=== PATIENT | male | born 1945 | race Caucasian/White ===

== ENCOUNTER 2016-03-20 17:04 | Inpatient (IN) | payer MEDICARE, OTHER ==
[2016-03-20] VITALS (7 sets, daily range): BP systolic 150–172; BP diastolic 79–93; PULSE 78–104; RESP 15–23; TEMP 98.1; O2SAT 93–97
[~2016-03-20] VITALS: Ht 180.3 cm; Wt 123.8 kg
[~2016-03-20 17:04] MED LIST: 1-ME1LIQ PO; ALBU8I INH; ASPI81TA82 PO; ATOR80TA PO; HYDR-3535 PO; IBUP800T23 PO; LORA1TAB PO; METO25 PO; NOVO7030P2 SQ; OMEG100037 PO; OXYC10TA8 PO; PLAV75TA PO; PROT40TA PO; TRAM50TA PO; VENL150T14 PO
[2016-03-20] MEDS ORDERED: SODIUM CHLORIDE 0.9% FLUSH 5 ML FLUSH IVF PRN (17:30)
[2016-03-20] MEDS ORDERED: VENL225T PO (17:43)
[2016-03-20] MEDS ORDERED: LANTUS2P SQ (17:43)
[2016-03-20] MEDS ORDERED: NOVOLOGP2 SQ ×3 (17:43)
[2016-03-20] MEDS ORDERED: IBUP-232 PO (17:47)
[2016-03-20] MEDS ORDERED: GABA800T PO (17:47)
[2016-03-20] MEDS ORDERED: LISI40TA PO (17:47)
[2016-03-20] MEDS ORDERED: OXYC-392 PO (17:47)
[2016-03-20] MEDS ORDERED: LORA1TAB12 PO (17:47)
[2016-03-20] MEDS ORDERED: AMLO10TA2 PO (17:47)
[2016-03-20] MEDS ORDERED: ATOR40TA16 PO (17:48)
[2016-03-20] MEDS ORDERED: FISH100020 PO (17:48)
[2016-03-20 18:01] LABS: AUTOMATED NEUTROPHIL # 5.5 TH/MM3 (1.8-7.7); BASOPHIL # 0.1 TH/MM3 (0-0.2); BASOPHIL % 0.6 % (0.0-2.0); EOSINOPHIL # 0.3 TH/MM3 (0-0.4); EOSINOPHIL % 2.8 % (0.0-4.0); HEMATOCRIT 48.5 % (39.0-51.0); HEMO FLAGS DIFF FINAL; LYMPH % 25.1 % (9.0-44.0); LYMPHOCYTE # 2.2 TH/MM3 (1.0-4.8); MEAN CELL VOLUME 84.7 FL (80.0-100.0); MEAN CORPUSCULAR HGB CONC 34.2 % (32.0-36.0); MONO % 9.2 % (0.0-8.0); NEUT % 62.3 % (16.0-70.0); PLATELET COUNT 189 TH/MM3 (150-450); RED BLOOD COUNT 5.73 MIL/MM3 (4.50-5.90); RED CELL DISTRIBUTION WIDTH 13.3 % (11.6-17.2); WHITE BLOOD COUNT 8.8 TH/MM3 (4.0-11.0)
--- NOTE | 2016-03-20 18:04 | RADRPT ---
EXAM DATE/TIME: 03/20/2016 17:40 [place] COMPARISON: No previous studies available for comparison. INDICATIONS : Short of Breath. MEDICAL HISTORY : Chronic renal failure. SURGICAL HISTORY : None. ENCOUNTER: Initial ACUITY: 1 day PAIN SCORE: 0/10 LOCATION: Bilateral chest FINDINGS: A single view of the chest demonstrates the lungs to be symmetrically aerated without evidence of mas s, infiltrate or effusion. The cardiomediastinal contours are unremarkable. Osseous structures are intact. CONCLUSION: No evidence of pulmonary disease. Edwin Sandhu MD on March 20, 2016 at 18:02 Board Certified Radiologist. This report was verified electronically.
[2016-03-20 18:06] LABS: INTERNATIONAL NORMALIZED RATIO 1.1 RATIO
[2016-03-20 18:19] LABS: ALKALINE PHOSPHATASE 109 U/L (45-117); BLOOD UREA NITROGEN 18 MG/DL (7-18); TOTAL BILIRUBIN ADULT 0.6 MG/DL (0.2-1.0)
[2016-03-20 18:32] LABS: ALT (GPT) 44 U/L (12-78); ANION GAP 5 MEQ/L (5-15); AST (GOT) 29 U/L (15-37); BICARBONATE 27.7 MEQ/L (21.0-32.0); CHLORIDE 102 MEQ/L (98-107); GLOMERULAR FILTRATION RATE 59 ML/MIN (>89); MAGNESIUM 1.9 MG/DL (1.5-2.5); SODIUM (NA) 135 MEQ/L (136-145)
[2016-03-20 18:33] LABS: POTASSIUM 4.1 MEQ/L (3.5-5.1)
--- NOTE | 2016-03-20 18:41 | PD ---
HPI Chief Complaint: Cardiac Complaint Time Seen by Provider: 17:12 Travel History International Travel<30 days: No Contact w/Intl Traveler<30days: No Traveled to known affect area: No History of Present Illness HPI This is a 71-year-old male who has a history of prior [place] who presents to the emergency department with wide-complex tachycardia. Patient was getting a tooth removed at the [place] and he was administered some sort of aging containing epinephrine when on the monitor they noticed that he was in a wide-complex tachycardia. EMS was called. EMS said the patient's rhythm resolved for some periods of time but then he went back so they started amiodarone and administered 150 mg. The patient has no complaints. He denies any chest pain or shortness of breath. His son reports that he's been weaker recently and has had less energy than normal. PFSH Past Medical History Arthritis: Yes Blood Disorders: No Cancer: No Cardiovascular Problems: Yes (STENT) Diabetes: Yes (INSULIN DEPENDENT) Patient Takes Glucophage: No Diminished Hearing: No Endocrine: No Genitourinary: No Hepatitis: Yes ("C") Hiatal Hernia: No Hypertension: Yes Immune Disorder: No Kidney Stones: Yes Neurologic: No Psychiatric: No Reproductive: No Respiratory: Yes (COPD) Thyroid Disease: No Tetanus Vaccination: Unknown Influenza Vaccination: Yes ?: Not Past Surgical History Abdominal Surgery: Yes (UMBILICAL HERNIA) AICD: No Body Medical Devices: HARDWARE IN BACK, CARDIAC STENT Cardiac Surgery: No Ear Surgery: Yes (PE TUBES) Endocrine Surgery: No Eye Surgery: No Genitourinary Surgery: Yes (ESWL) Gynecologic Surgery: No Joint Replacement: No Oral Surgery: Yes Pacemaker: No Thoracic Surgery: No Other Surgery: Yes Social History Alcohol Use: No Tobacco Use: Yes (1PK/DAY) Substance Use: No Allergies-Medications (Allergen,Severity, Reaction): Coded Allergies: No Known Allergies (Verified , 12/03/15) Reported Meds & Prescriptions Reported Meds & Active Scripts Active Reported Fish Oil 1000 mg ([place]-3 Fatty Acids) 1 Cap Cap 1,000 Mg PO BID Atorvastatin (Atorvastatin Calcium) 40 Mg Tab 40 Mg PO HS Gabapentin 800 Mg Tab 800 Mg PO TID Lisinopril 40 Mg Tab 40 Mg PO DAILY Amlodipine (Amlodipine Besylate) 10 Mg Tab 10 Mg PO DAILY Ibuprofen 600 Mg Tab 600 Mg PO TID PRN Lorazepam 1 Mg Tab 1 Mg PO HS Oxycodone (Oxycodone HCl) 5 Mg Tab 5 Mg PO Q8HR PRN Venlafaxine ER 24 HR (Venlafaxine HCl) 225 Mg Tab 225 Mg PO DAILY Novolog Inj (Insulin Aspart) 1,000 Unit/10 Ml Vial 19 Units SQ AC DINNER Novolog Inj (Insulin Aspart) 1,000 Unit/10 Ml Vial 5 Units SQ AC LUNCH Novolog Inj (Insulin Aspart) 1,000 Unit/10 Ml Vial 15 Units SQ AC BREAKFAST Lantus Inj (Insulin Glargine) 1,000 Unit/10 Ml Vial 52 Units SQ HS Review of Systems Except as stated in HPI: all other systems reviewed are Neg Physical Exam Narrative GENERAL:Well appearing, no acute distress SKIN: Warm and dry. HEAD: Atraumatic. Normocephalic. EYES: Pupils equal and round. No injection or drainage. ENT: Moist mucous membranes NECK: Trachea midline. CARDIOVASCULAR: Tachycardic. No murmur appreciated. RESPIRATORY: Clear to auscultation. Breath sounds equal bilaterally. GASTROINTESTINAL: Abdomen soft, non-tender, nondistended. MUSCULOSKELETAL: No obvious deformities. NEUROLOGICAL: Awake and alert. No obvious cranial nerve deficits. Moving all extremities. PSYCHIATRIC: Appropriate mood and affect; insight and judgment normal. Data Data Last Documented VS Vital Signs Date Time Temp Pulse Resp B/P Pulse Ox O2 Delivery O2 Flow Rate FiO2 03/20/16 17:29 104 18 166/89 97 Nasal Cannula 2 03/20/16 17:18 98.1 Orders Electrocardiogram (03/20/16 17:26) Complete Blood Count With Diff (03/20/16 17:26) Comprehensive Metabolic Panel (03/20/16 17:26) Magnesium (Mg) (03/20/16 17:26) Prothrombin Time / Inr (Pt) (03/20/16 17:26) Act Partial Throm Time (Ptt) (03/20/16 17:26) Troponin I (03/20/16 17:26) Chest, Single Ap (03/20/16 17:26) Ecg Monitoring (03/20/16 17:26) Bilateral Bp Monitoring (03/20/16 17:26) Iv Access Insert/Monitor (03/20/16 17:26) Oximetry (03/20/16 17:26) Oxygen Administration (03/20/16 17:26) Sodium Chloride 0.9% Flush (Ns Flush) (03/20/16 17:30) Amiodarone Inj (Cordarone Inj) (03/20/16 18:30) Labs Laboratory Tests Test 03/20/16 17:30 White Blood Count 8.8 TH/MM3 Red Blood Count 5.73 MIL/MM3 Hemoglobin 16.6 GM/DL Hematocrit 48.5 % Mean Corpuscular Volume 84.7 FL Mean Corpuscular Hemoglobin 29.0 PG Mean Corpuscular Hemoglobin 34.2 % Concent Red Cell Distribution Width 13.3 % Platelet Count 189 TH/MM3 Mean Platelet Volume 10.0 FL Neutrophils (%) (Auto) 62.3 % Lymphocytes (%) (Auto) 25.1 % Monocytes (%) (Auto) 9.2 % Eosinophils (%) (Auto) 2.8 % Basophils (%) (Auto) 0.6 % Neutrophils # (Auto) 5.5 TH/MM3 Lymphocytes # (Auto) 2.2 TH/MM3 Monocytes # (Auto) 0.8 TH/MM3 Eosinophils # (Auto) 0.3 TH/MM3 Basophils # (Auto) 0.1 TH/MM3 CBC Comment DIFF FINAL Differential Comment Prothrombin Time 12.0 SEC Prothromb Time International 1.1 RATIO Ratio Activated Partial 29.0 SEC Thromboplast Time Sodium Level 135 MEQ/L Potassium Level 4.1 MEQ/L Chloride Level 102 MEQ/L Carbon Dioxide Level 27.7 MEQ/L Anion Gap 5 MEQ/L Blood Urea Nitrogen 18 MG/DL Creatinine 1.22 MG/DL Estimat Glomerular Filtration 59 ML/MIN Rate Random Glucose 125 MG/DL Calcium Level 9.0 MG/DL Magnesium Level 1.9 MG/DL Total Bilirubin 0.6 MG/DL Aspartate Amino Transf 29 U/L (AST/SGOT) Alanine Aminotransferase 44 U/L (ALT/SGPT) Alkaline Phosphatase 109 U/L Troponin I LESS THAN 0.02 NG/ML Total Protein 7.7 GM/DL Albumin 3.9 GM/DL [facility] Medical Decision Making Medical Screen Exam Complete: Yes Emergency Medical Condition: Yes Interpretation(s) Afebrile, tachycardic, hypertensive No leukocytosis Electrolytes are reassuring Coags are normal Differential Diagnosis Ventricular tachycardia, SVT with aberrancy, acute coronary syndrome Narrative Course This is a 71-year-old male who presents to the emergency department with a wide- complex tachycardia. He is asymptomatic. He was placed on amiodarone by EMS. His vital signs are stable and he has no chest pain. Labs are all reassuring. Patient will be admitted for cardiology consultation. Critical Care Narrative Aggregate critical care time was 35 minutes. Time to perform other separately billable procedures was not included in the critical care time. My time did not include minutes spent treating any other patients simultaneously or on activities that did not directly contribute to the patient's treatment. The services I provided to this patient were to treat and/or prevent clinically significant deterioration that could result in: Disability, I provided critical care services requiring my management, as noted below: Chart data review, documentation time, medication orders and management, vital sign assessments/reviewing monitor data, ordering and reviewing lab tests, ordering and interpreting/reviewing x-rays and diagnostic studies, care of the patient and discussion of the patient with the admitting physicians. Diagnosis Primary Impression: Wide-complex tachycardia Admitting Information Admitting Physician Requests: Admit Sumaya Nur MD Mar 20, 2016 18:41
[2016-03-20] MEDS: AMIODARONE INJ 450 MG in DEXTROSE 5% IN WATE(EXCEL) INJ 250 ML IV SCH ×2 (19:27)
[2016-03-20] MEDS: MORPHINE SULFATE 4 MG/ML INJ IV PUSH PRN (21:33)
--- NOTE | 2016-03-20 21:46 | HHI.HP ---
HPI Service [facility] Hospitalists Primary Care Physician Neeta Barry M.D. Admission Diagnosis wide complex tachycardia Chief Complaint: sent from [place] for fast heart rate Travel History International Travel<30 Days: No Contact w/Intl Traveler <30 Da: No Traveled to Known Affected Are: No History of Present Illness This is a 71-year-old male who has a history of prior [place] and stent placement who presents to the emergency department via [facility] from local [facility] with wide- complex tachycardia. Patient was getting a tooth removed at the [facility] and he was administered some sort of education containing possibly epinephrine or Novocain when apparently on the monitor they noticed that he was in a wide-complex tachycardia. His blood pressure and heart rate were elevated. Manual recheck at the [facility] revealed heart rate in the 130s. Heart rate improved with Valsalva maneuver, but EMS was called. EMS said the patient's rhythm resolved for some periods of time but then he went back into wide-complex tachyarrhythmia so they started amiodarone and administered 150 mg. He denies any chest pain or shortness of breath. His son reports that he's been weaker recently and has had less energy than normal. She reports the only reason he is here is that the [facility] sent him by ambulance. He denies any complaints to me except for some slight oozing of blood from where he had his tooth removed and some slight pain around that area. Review of Systems Constitutional: COMPLAINS OF: Fatigue Ears, nose, mouth, throat: COMPLAINS OF: Toothache Respiratory: DENIES: Apneas, Cough, Snoring, Wheezing, Hemoptysis, Sputum production, Shortness of breath Cardiovascular: DENIES: Chest pain, Palpitations, Syncope, Dyspnea on Exertion , PND, Lower Extremity Edema, Orthopnea, Claudication Gastrointestinal: DENIES: Abdominal pain, Black stools, Bloody stools, BRB per rectum, Constipation, Diarrhea, GERD, Nausea, Reflux, Vomiting, Difficulty Swallowing, Anorexia, See HPI Musculoskeletal: COMPLAINS OF: Joint pain, Stiffness Integumentary: DENIES: Abnormal pigmentation, Nail changes, Pruritus, Rash Hematologic/lymphatic: DENIES: Bruising, Lymphadenopathy Neurologic: DENIES: Abnormal gait, Headache, Localized weakness, Paresthesias, Seizures, Speech Problems, Tremor, Poor Balance Past Family Social History Past Medical History Aortic ectasia and atherosclerosis of the aorta BPH Chronic hepatitis C COPD Chronic kidney disease stage II Diabetes with angiopathy and peripheral neuropathy Diabetic nephropathy Lumbar degenerative disc disease Hyperlipidemia Long-term insulin use Major depressive disorder recurrent Paroxysmal ventricular tachyarrhythmia Past Surgical History Lumbar arthrodesis in 2007 Lumbar laminectomy at L4-L5 Lithotripsy Paravertebral nerve block Heart catheterization with bare metal stent placement approximately one year ago per patient Reported Medications Fish Oil 1000 mg ([place]-3 Fatty Acids) 1 Cap Cap 1,000 Mg PO BID Atorvastatin (Atorvastatin Calcium) 40 Mg Tab 40 Mg PO HS Gabapentin 800 Mg Tab 800 Mg PO TID Lisinopril 40 Mg Tab 40 Mg PO DAILY Amlodipine (Amlodipine Besylate) 10 Mg Tab 10 Mg PO DAILY Ibuprofen 600 Mg Tab 600 Mg PO TID PRN Lorazepam 1 Mg Tab 1 Mg PO HS Oxycodone (Oxycodone HCl) 5 Mg Tab 5 Mg PO Q8HR PRN Venlafaxine ER 24 HR (Venlafaxine HCl) 225 Mg Tab 225 Mg PO DAILY Novolog Inj (Insulin Aspart) 1,000 Unit/10 Ml Vial 19 Units SQ AC DINNER Novolog Inj (Insulin Aspart) 1,000 Unit/10 Ml Vial 5 Units SQ AC LUNCH Novolog Inj (Insulin Aspart) 1,000 Unit/10 Ml Vial 15 Units SQ AC BREAKFAST Lantus Inj (Insulin Glargine) 1,000 Unit/10 Ml Vial 52 Units SQ Allergies: Coded Allergies: No Known Allergies (Verified , 12/03/15) Family History n/c Social History No tobacco in 10 years prior to that smoked about 1-1/2 packs per day for over 40 years No alcohol or illicit drugs recently 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 SKIN: No rashes, ecchymoses or lesions. Cool and dry. Multiple tattoos on arms and torso, lower extremities. HEAD: Atraumatic. Normocephalic. No temporal or scalp tenderness. EYES: Pupils equal round and reactive. Extraocular motions intact. No scleral icterus. No injection or drainage. ENT: Nose without bleeding, purulent drainage or septal hematoma. Post dental extraction venous oozing left anterior mandible, Uvula midline. Airway patent. NECK: Trachea midline. No JVD or lymphadenopathy. Supple, nontender, no meningeal signs. CARDIOVASCULAR: Regular rate and rhythm with occasional extrasystole. No significant murmur. Rate in the 80s on my exam. RESPIRATORY: Clear to auscultation. Breath sounds equal bilaterally. No wheezes , rales, or rhonchi. GASTROINTESTINAL: Abdomen soft, non-tender, nondistended. No hepato-splenomegaly , or palpable masses. No guarding. MUSCULOSKELETAL: Extremities without clubbing, cyanosis, or edema. No joint tenderness, effusion, or edema noted. No calf tenderness. Negative Homans sign bilaterally. NEUROLOGICAL: Awake and alert. Cranial nerves II through XII intact. Motor and sensory grossly within normal limits. Five out of 5 muscle strength in all muscle groups. Normal speech. Laboratory Laboratory Tests Test 03/20/16 17:30 White Blood Count 8.8 Red Blood Count 5.73 Hemoglobin 16.6 Hematocrit 48.5 Mean Corpuscular Volume 84.7 Mean Corpuscular Hemoglobin 29.0 Mean Corpuscular Hemoglobin 34.2 Concent Red Cell Distribution Width 13.3 Platelet Count 189 Mean Platelet Volume 10.0 Neutrophils (%) (Auto) 62.3 Lymphocytes (%) (Auto) 25.1 Monocytes (%) (Auto) 9.2 Eosinophils (%) (Auto) 2.8 Basophils (%) (Auto) 0.6 Neutrophils # (Auto) 5.5 Lymphocytes # (Auto) 2.2 Monocytes # (Auto) 0.8 Eosinophils # (Auto) 0.3 Basophils # (Auto) 0.1 CBC Comment DIFF FINAL Differential Comment Prothrombin Time 12.0 Prothromb Time International 1.1 Ratio Activated Partial 29.0 Thromboplast Time Sodium Level 135 Potassium Level 4.1 Chloride Level 102 Carbon Dioxide Level 27.7 Anion Gap 5 Blood Urea Nitrogen 18 Creatinine 1.22 Estimat Glomerular Filtration 59 Rate Random Glucose 125 Calcium Level 9.0 Magnesium Level 1.9 Total Bilirubin 0.6 Aspartate Amino Transf 29 (AST/SGOT) Alanine Aminotransferase 44 (ALT/SGPT) Alkaline Phosphatase 109 Troponin I LESS THAN 0.02 Total Protein 7.7 Albumin 3.9 Result Diagram: 03/20/160 03/20/16 1730 Imaging Last 72 hours Impressions Chest X-Ray 03/20/16 1726 Signed Impressions: Service Date/Time: March 17:40 - CONCLUSION: No evidence of pulmonary disease. Edwin Sandhu MD Assessment and Plan Problem List: (1) Wide-complex tachycardia Status: Acute Plan: Patient apparently has history of paroxysmal ventricular tachyarrhythmia. We'll continue amiodarone drip as his rhythm is stabilized. Possibly induced by some procedural agents used for dental work earlier today. Have cardiology see the patient. (2) Diabetic nephropathy Status: Chronic Plan: Place on sliding scale insulin. (3) Hypertension Status: Chronic Plan: Continue medication. (4) Chronic pain Status: Chronic Plan: Provide IV morphine here. We'll convert to oral likely tomorrow. Code Status Full Discussed Condition With Patient and his son Problem Qualifiers (1) Diabetic nephropathy: Qualified Code: E11.21 - Diabetic nephropathy associated with type 2 diabetes mellitus Yovany Stratton PhD MD Mar 20, 2016 21:46
[2016-03-21] VITALS (18 sets, daily range): BP systolic 115–164; BP diastolic 58–94; PULSE 54–76; RESP 14–21; TEMP 97.5–97.8; O2SAT 92–96
[2016-03-21] MEDS: INSULIN ASPART SUPPLEMENTAL SCALE SQ SCH ×3 (08:00→22:01)
[2016-03-21] MEDS: LISINOPRIL 20 MG TAB PO SCH (08:18)
[2016-03-21] MEDS: GABAPENTIN 400 MG CAP PO SCH ×2 (08:18→18:38)
[2016-03-21] MEDS: ASPIRIN 81 MG CHEW TAB CHEW SCH (08:18)
[2016-03-21] MEDS: CLOPIDOGREL 75 MG TAB PO SCH (08:18)
[2016-03-21] MEDS: METOPROLOL TARTRATE 50 MG TAB PO SCH (08:19)
[2016-03-21] MEDS: VENLAFAXINE HCL XR 75 MG CAP PO SCH (08:25)
--- NOTE | 2016-03-21 08:48 | PD.CONS ---
HPI Service CV Consult Requested By Reason for Consult V-tach Primary Care Physician Neeta Barry M.D. History of Present Illness Here with CAD s/p PCI BMS (12/2015) and paroxysmal VT for wide QRS complex tachycardia. He states he went to the dentist to have a tooth pulled. He did have novocaine. He began getting short of breath and it was noticed that his heart rate was elevated. He was sent to the [facility] at the [place] and found to be in wide complex tachycardia rate 130. He he has continues to have what appears to be NSVT. He was started on amiodarone gtt and the NSVT has decreased. He has continued to have couplets, bigeminy and 4 beat runs. He denies chest pain or palpitations. His outpatient make up worker is Dr. White (Indra Stern) Review of Systems Consitutional: DENIES: Fatigue, Fever, Chills, Weight gain, Weight loss Eyes: DENIES: Amaurosis Fugax, Change in vision HEENT: DENIES: Lightheadedness, Change in hearing Respiratory: DENIES: See HPI, Cough, Snoring, Shortness of breath, Wheezing, Sputum production Cardiovascular: COMPLAINS OF: See HPI Gastrointestinal: DENIES: Nausea, Vomiting, Change in bowel habits, Reflux, Bloody stools, Melena Genitourinary: DENIES: Urinary incontinence, Difficulty voiding Integumentary: DENIES: Rash Neurologic: DENIES: Tingling or numbness, Memory problems, Poor Balance, Stroke symptoms Musculoskeletal: DENIES: Joint pain, Muscle pain, Limited range of motion, Back pain Psychiatric: DENIES: Anxiety, Depression, Sleep disturbances Hematologic: DENIES: Bruising tendencies, Bleeding tendencies Endocrine: DENIES: Weight gain, Weight loss, Thyroid disease (Indra Stern ) Past Family Social History Allergies: Coded Allergies: No Known Allergies (Verified , 03/21/16) Past Medical History Aortic ectasia and atherosclerosis of the aorta BPH Chronic hepatitis C COPD Chronic kidney disease stage II Diabetes with angiopathy and peripheral neuropathy Diabetic nephropathy Lumbar degenerative disc disease Hyperlipidemia Long-term insulin use Major depressive disorder recurrent Paroxysmal ventricular tachyarrhythmia Past Surgical History Lumbar arthrodesis in 2007 Lumbar laminectomy at L4-L5 Lithotripsy Paravertebral nerve block Reported Medications Fish Oil 1000 mg ([place]-3 Fatty Acids) 1 Cap Cap 1,000 Mg PO BID Atorvastatin (Atorvastatin Calcium) 40 Mg Tab 40 Mg PO HS Gabapentin 800 Mg Tab 800 Mg PO TID Lisinopril 40 Mg Tab 40 Mg PO DAILY Amlodipine (Amlodipine Besylate) 10 Mg Tab 10 Mg PO DAILY Ibuprofen 600 Mg Tab 600 Mg PO TID PRN Lorazepam 1 Mg Tab 1 Mg PO HS Oxycodone (Oxycodone HCl) 5 Mg Tab 5 Mg PO Q8HR PRN Venlafaxine ER 24 HR (Venlafaxine HCl) 225 Mg Tab 225 Mg PO DAILY Novolog Inj (Insulin Aspart) 1,000 Unit/10 Ml Vial 19 Units SQ AC DINNER Novolog Inj (Insulin Aspart) 1,000 Unit/10 Ml Vial 5 Units SQ AC LUNCH Novolog Inj (Insulin Aspart) 1,000 Unit/10 Ml Vial 15 Units SQ AC BREAKFAST Lantus Inj (Insulin Glargine) 1,000 Unit/10 Ml Vial 52 Units SQ Family History noncontributory Social History No tobacco in 10 years prior to that smoked about 1-1/2 packs per day for over 40 years No alcohol or illicit drugs recently (Indra Stern) Physical Exam Vital Signs Vital Signs Date Time Temp Pulse Resp B/P Pulse Ox O2 Delivery O2 Flow Rate FiO2 03/21/16 07:46 73 16 154/78 92 Nasal Cannula 2.0 03/21/16 05:36 68 14 115/58 95 Room Air 03/21/16 03:00 66 15 121/58 93 Nasal Cannula 2 03/21/16 02:00 74 14 141/70 94 Nasal Cannula 2 03/21/16 01:00 74 15 164/75 94 Nasal Cannula 2 03/21/16 00:00 76 19 160/94 94 Nasal Cannula 2 03/20/16 23:06 78 15 151/79 94 Nasal Cannula 2 03/20/16 22:00 84 17 172/80 95 Nasal Cannula 2 03/20/16 21:00 86 23 164/92 95 Nasal Cannula 2 03/20/16 20:00 85 15 150/93 95 Nasal Cannula 2 03/20/16 19:21 104 20 167/92 93 Nasal Cannula 03/20/16 17:29 104 18 166/89 97 Nasal Cannula 2 03/20/16 17:29 Room Air 03/20/16 17:21 Room Air 03/20/16 17:18 98.1 95 18 166/89 97 Physical Exam GENERAL: Well-nourished, well-developed patient in no apparent distress. NECK: No JVD. No carotid bruit. CARDIOVASCULAR: Regular rate and rhythm. S1/S2 no murmur, rub, or gallop. RESPIRATORY: No accessory muscle use. Clear to auscultation. Breath sounds equal bilaterally. GASTROINTESTINAL: Abdomen soft, non-tender, nondistended. MUSCULOSKELETAL: Extremities without clubbing, cyanosis, or edema. Laboratory Laboratory Tests Test 03/20/16 17:30 White Blood Count 8.8 Red Blood Count 5.73 Hemoglobin 16.6 Hematocrit 48.5 Mean Corpuscular Volume 84.7 Mean Corpuscular Hemoglobin 29.0 Mean Corpuscular Hemoglobin 34.2 Concent Red Cell Distribution Width 13.3 Platelet Count 189 Mean Platelet Volume 10.0 Neutrophils (%) (Auto) 62.3 Lymphocytes (%) (Auto) 25.1 Monocytes (%) (Auto) 9.2 Eosinophils (%) (Auto) 2.8 Basophils (%) (Auto) 0.6 Neutrophils # (Auto) 5.5 Lymphocytes # (Auto) 2.2 Monocytes # (Auto) 0.8 Eosinophils # (Auto) 0.3 Basophils # (Auto) 0.1 CBC Comment DIFF FINAL Differential Comment Prothrombin Time 12.0 Prothromb Time International 1.1 Ratio Activated Partial 29.0 Thromboplast Time Sodium Level 135 Potassium Level 4.1 Chloride Level 102 Carbon Dioxide Level 27.7 Anion Gap 5 Blood Urea Nitrogen 18 Creatinine 1.22 Estimat Glomerular Filtration 59 Rate Random Glucose 125 Calcium Level 9.0 Magnesium Level 1.9 Total Bilirubin 0.6 Aspartate Amino Transf 29 (AST/SGOT) Alanine Aminotransferase 44 (ALT/SGPT) Alkaline Phosphatase 109 Troponin I LESS THAN 0.02 Total Protein 7.7 Albumin 3.9 (Indra Stern) Result Diagram: 03/20/16 1730 03/20/16 1730 Assessment and Plan Problem List: (1) Wide-complex tachycardia (2) Hypertension Assessment and Plan NSVT - get 2D echo, start metoprolol 50 mg BID, Plavix and ASA 81 mg. Plan for left heart cath to r/o ischemia. HTN as above will await to see the effect of the BB prior to adding another medication (Indra Stern) Assessment and Plan sustained VT - several episodes of greater than 30 seconds of wide complex tachycardia. Fusion beats seen suggestive of VT. + symptoms. +prior CAD with PCI. PVCs less frequent on amio gtt. HR 50's. cannot titrate BB much. 2d echo. LHC to rule out ischemic etiology. if LHC negative, will need EP input. (Mailk Randhawa MD) Problem Qualifiers (1) Hypertension: Qualified Code: I10 - Essential hypertension Indra Stern Mar 21, 2016 08:48 Malik Randhawa MD Mar 21, 2016 10:27
[2016-03-21] MEDS ORDERED: SODIUM CHLORIDE 0.9% FLUSH 5 ML FLUSH IVF PRN (10:30)
[2016-03-21] MEDS ORDERED: HEPARIN-NS/PF INJ 500 ML ONE (11:23)
--- NOTE | 2016-03-21 11:23 | HHI.PR ---
Subjective Remarks Pt noted to frequent ectopy on telemetry . Pt had sustained VT > 30 seconds overnight. Pt currently denies cp, palpitations, or SOB. Objective Vitals Vital Signs Date Time Temp Pulse Resp B/P Pulse Ox O2 Delivery O2 Flow Rate FiO2 03/21/16 07:46 73 16 154/78 92 Nasal Cannula 2.0 03/21/16 05:36 68 14 115/58 95 Room Air 03/21/16 03:00 66 15 121/58 93 Nasal Cannula 2 03/21/16 02:00 74 14 141/70 94 Nasal Cannula 2 03/21/16 01:00 74 15 164/75 94 Nasal Cannula 2 03/21/16 00:00 76 19 160/94 94 Nasal Cannula 2 03/20/16 23:06 78 15 151/79 94 Nasal Cannula 2 03/20/16 22:00 84 17 172/80 95 Nasal Cannula 2 03/20/16 21:00 86 23 164/92 95 Nasal Cannula 2 03/20/16 20:00 85 15 150/93 95 Nasal Cannula 2 03/20/16 19:21 104 20 167/92 93 Nasal Cannula 03/20/16 17:29 104 18 166/89 97 Nasal Cannula 2 03/20/16 17:29 Room Air 03/20/16 17:21 Room Air 03/20/16 17:18 98.1 95 18 166/89 97 03/20/16 03/20/16 03/21/16 15:00 23:00 07:00 Output Total 950 ml Balance -950 ml Output Urine Total 950 ml # Voids 1 Result Diagram: 03/20/16 1730 03/20/16 1730 Imaging Last 72 hours Impressions Chest X-Ray 03/20/16 1726 Signed Impressions: Service Date/Time: March 17:40 - CONCLUSION: No evidence of pulmonary disease. Edwin Sandhu MD Objective Remarks GENERAL: This is a well-nourished, well-developed patient, in no apparent distress. CARDIOVASCULAR: Regular rate and rhythm without murmurs, gallops, or rubs. RESPIRATORY: Clear to auscultation. Breath sounds equal bilaterally. No wheezes , rales, or rhonchi. GASTROINTESTINAL: Abdomen soft, non-tender, nondistended. Normal active bowel sounds MUSCULOSKELETAL: Extremities without clubbing, cyanosis, or edema. NEURO: Alert & Oriented x4 to person, place, time, situation. Moves all ext x4 A/P Problem List: (1) Wide-complex tachycardia Status: Acute Plan: - Patient has history of paroxysmal ventricular tachyarrhythmia. - amiodarone gtt - telemetry noted ectopy overnight including VT > 30 seconds - case d/w Cardiology, Dr. Randhawa (03/21/16) - Pt underwent LHC with Dr. Randhawa (03/21/16) - patent stent - mild CAD - Case d/w Dr. Blair - Pt to be discharge with Life Vest - Pt to f/u with Dr. Sloan in 3-5 days - I will write discharge orders, pending arrangements for Life Vest (2) Diabetic nephropathy Status: Chronic Plan: - SSI (3) Hypertension Status: Chronic Plan: - stable - norvasc, lopressor, lisinopril (4) Chronic pain Status: Chronic Plan: - prn oxycodone/prn morphine Problem Qualifiers (1) Diabetic nephropathy: Qualified Code: E11.21 - Diabetic nephropathy associated with type 2 diabetes mellitus (2) Hypertension: Qualified Code: I10 - Essential hypertension Kurt Marino DO Mar 21, 2016 11:23
[2016-03-21] MEDS ORDERED: MIDAZOLAM HCL 2 MG/2 ML VIAL ONE ×2 (11:24→11:56)
[2016-03-21] MEDS ORDERED: VERAPAMIL HCL 5 MG/2 ML VIAL ONE (11:24)
[2016-03-21] MEDS ORDERED: HEPARIN SODIUM - IV 10,000 UNITS/10 ML VIAL ONE (11:24)
[2016-03-21] MEDS ORDERED: NITROGLYCERIN INJ 5 ML ONE (11:24)
[2016-03-21] MEDS ORDERED: IOHEXOL 350 MG/ML 50 ML BTL (for Cath Lab) OTHER ONE (11:54)
--- NOTE | 2016-03-21 12:33 | MA ---
cc: MARIE OSHEA DATE: 03/21/2016 PROCEDURE PERFORMED 1. Fluoroscopy with interpretation. 2. Coronary angiography. 3. Left heart catheterization. 4. Left ventriculography. METHOD The risks, benefits and alternatives were discussed with the patient. The patient understood and consented to the procedure. The patient was brought to the cardiac catheterization lab and placed on the cardiac catheterization table. The right wrist was prepped and draped in a sterile fashion. The right wrist was anesthetized with 2% lidocaine. The right radial artery was cannulated and a 6-Sammarinese, 7 cm sheath was placed without difficulty. LEFT HEART CATHETERIZATION Intraventricular hemodynamics shows 121/17 mmHg. LEFT VENTRICULOGRAPHY Left ventriculography is performed in a right anterior oblique view. Ejection fraction estimate 60% without regional wall motion abnormalities. CORONARY ANGIOGRAPHY The left coronary circulation is selectively engaged with a 6-Sammarinese JL3.5 catheter. The right coronary circulation is selectively engaged with a 6-Sammarinese JR5 catheter. CORONARY ANATOMY 1. The left main is angiographically normal. 2. The left anterior descending coronary has some minor luminal irregularities at the proximal to midsegment. There is a large first diagonal branch which has some mild disease proximally. A second very small diagonal branch has a 90% ostial stenosis. The remainder of the left anterior descending coronary has minor luminal irregularities. 3. The left circumflex gives rise to an obtuse marginal branch. There is a stent present proximally which is widely patent. The circumflex proper in the AV groove has an ostial 50% stenosis but is smaller caliber size. 4. The right coronary is a dominant vessel giving rise to a posterior descending branch. There are some minor luminal irregularities in the proximal to midsegment of the right coronary. CONCLUSIONS 1. Branch vessel coronary artery disease. 2. Patent first obtuse marginal branch stent. 3. Normal left ventricular systolic function and left-sided filling pressures. PLAN The only potential culprit for any ischemia-induced ventricular arrhythmia would be the diagonal branch but does appear to be too small for percutaneous intervention. Will proceed with medical management approach. Has normal ejection fraction. Hardy of arrhythmia is quite significantly decreased since the amiodarone administration. We will ask electrophysiology to weigh in with need for any further therapies. The patient is planning to follow-up with Dr. White in the outpatient setting. MD RADHA Go /12:14 PM 12:23 PM
[2016-03-21] MEDS ORDERED: BACITRACIN OINT 0.9 GM PKT TOP ONE (13:00)
[2016-03-21] MEDS ORDERED: MISC INFORMATION XX ONE (13:00)
--- NOTE | 2016-03-21 14:05 | EKG ---
Date Performed: 03/20/2016 Time Performed: 17:20:29 PTAGE: 71 years EKG: WIDE COMPLEX TACHYCARDIA INTRAVENTRICULAR CONDUCTION DELAY ANTERIOR MYOCARDIAL INFARCTION * ACUTE IA Compared to prior tracing the wide complex tachycardia is new and may represent a ventr icular tachycardia. The widening of the QRS complex is new. Signifiant serial changes have occurred a nd clinical correlation will be important. PREVIOUS TRACING : 06/12/2015 07.14 DOCTOR: Samantha Heart Interpretating Date/Time 03/21/2016 14:03:32
--- NOTE | 2016-03-21 16:41 | HHI.FF ---
Face to Face Verification Diagnosis: (1) Diabetic nephropathy (2) Hypertension (3) Chronic pain (4) Wide-complex tachycardia I have seen patient Jatinder Shannon on 03/21/16. My clinical findings support the need for the requested home health care services because: Deconditioned w/ increased weakness Med compliance is questionable Need for psychosocial assistance I certify that my clinical findings support that this patient is homebound because: Impaired cognitive ability/safety Unsafe to leave home unassisted Need for psychosocial assistance Unable to use public transportation Kurt Marino DO Mar 21, 2016 16:41
[2016-03-21] MEDS: AMIODARONE INJ 450 MG in DEXTROSE 5% IN WATE(EXCEL) INJ 250 ML IV SCH ×2 (19:11)
[2016-03-21] MEDS: ATORVASTATIN 40 MG TAB PO SCH (21:58)
[2016-03-21] MEDS: LORazepam 1 MG TAB PO SCH (21:58)
[2016-03-21] MEDS: SODIUM CHLORIDE 0.9% FLUSH 5 ML FLUSH IVF SCH (21:58)
[2016-03-22] VITALS (25 sets, daily range): BP systolic 122–143; BP diastolic 74–85; PULSE 57–72; RESP 14–20; TEMP 97.7–98.3; O2SAT 94–96
[2016-03-22] MEDS: INSULIN ASPART SUPPLEMENTAL SCALE SQ SCH ×3 (06:26→21:56)
[2016-03-22 07:32] LABS: AUTOMATED NEUTROPHIL # 4.5 TH/MM3 (1.8-7.7); BASOPHIL % 0.6 % (0.0-2.0); EOSINOPHIL # 0.3 TH/MM3 (0-0.4); EOSINOPHIL % 3.6 % (0.0-4.0); HEMO FLAGS DIFF FINAL; LYMPHOCYTE # 2.4 TH/MM3 (1.0-4.8); MEAN CELL VOLUME 84.5 FL (80.0-100.0); MEAN CORPUSCULAR HEMOGLOBIN 28.1 PG (27.0-34.0); MEAN CORPUSCULAR HGB CONC 33.2 % (32.0-36.0); MONO % 9.1 % (0.0-8.0); NEUT % 56.7 % (16.0-70.0); PLATELET COUNT 175 TH/MM3 (150-450); RED BLOOD COUNT 5.21 MIL/MM3 (4.50-5.90); RED CELL DISTRIBUTION WIDTH 13.3 % (11.6-17.2); WHITE BLOOD COUNT 7.9 TH/MM3 (4.0-11.0)
[2016-03-22 07:54] LABS: BICARBONATE 26.7 MEQ/L (21.0-32.0); POTASSIUM 4.1 MEQ/L (3.5-5.1)
[2016-03-22] MEDS: CLOPIDOGREL 75 MG TAB PO SCH (10:02)
[2016-03-22] MEDS: VENLAFAXINE HCL XR 75 MG CAP PO SCH (10:08)
[2016-03-22] MEDS: METOPROLOL TARTRATE 50 MG TAB PO SCH ×2 (10:09→21:47)
[2016-03-22] MEDS: ASPIRIN 81 MG CHEW TAB CHEW SCH (10:09)
[2016-03-22] MEDS: GABAPENTIN 400 MG CAP PO SCH ×3 (10:09→18:00)
[2016-03-22] MEDS: LISINOPRIL 20 MG TAB PO SCH (10:09)
[2016-03-22] MEDS: SODIUM CHLORIDE 0.9% FLUSH 5 ML FLUSH IVF SCH ×2 (10:10→21:48)
--- NOTE | 2016-03-22 13:04 | HHI.PR ---
Subjective Remarks No new complaints. No chest pain, no palpitations, no SOB. Objective Vitals Vital Signs Date Time Temp Pulse Resp B/P Pulse Ox O2 Delivery O2 Flow Rate FiO2 03/22/16 12:00 62 03/22/16 11:00 97.9 57 20 122/79 96 03/22/16 11:00 64 03/22/16 10:00 58 03/22/16 09:00 58 03/22/16 08:00 62 03/22/16 07:00 97.7 62 20 143/85 96 03/22/16 06:00 62 03/22/16 05:00 66 03/22/16 04:59 60 18 126/84 95 03/22/16 04:00 66 03/22/16 03:00 69 03/22/16 02:00 66 03/22/16 01:00 70 03/22/16 00:00 66 03/21/16 23:00 73 18 141/84 94 03/21/16 23:00 70 03/21/16 22:00 72 03/21/16 21:00 68 03/21/16 20:30 97.8 67 18 159/86 95 03/21/16 20:00 66 03/21/16 19:00 62 03/21/16 18:00 60 03/21/16 17:00 58 03/21/16 16:00 97.5 62 20 155/87 96 03/21/16 03/21/16 03/22/16 15:00 23:00 07:00 Intake Total 240 ml 240 ml Output Total 300 ml 725 ml Balance -60 ml -485 ml Intake Oral 240 ml 240 ml Output Urine Total 300 ml 725 ml Result Diagram: 03/22/16 0630 03/22/16 0630 Imaging Last 72 hours Impressions Chest X-Ray 03/20/16 1726 Signed Impressions: Service Date/Time: March 17:40 - CONCLUSION: No evidence of pulmonary disease. Edwin Sandhu MD Objective Remarks GENERAL: This is a well-nourished, well-developed patient, in no apparent distress. CARDIOVASCULAR: Regular rate and rhythm without murmurs, gallops, or rubs. RESPIRATORY: Clear to auscultation. Breath sounds equal bilaterally. No wheezes , rales, or rhonchi. GASTROINTESTINAL: Abdomen soft, non-tender, nondistended. Normal active bowel sounds MUSCULOSKELETAL: Extremities without clubbing, cyanosis, or edema. NEURO: Alert & Oriented x4 to person, place, time, situation. Moves all ext x4 A/P Problem List: (1) Wide-complex tachycardia Status: Acute Plan: - Patient has history of paroxysmal ventricular tachyarrhythmia. - telemetry noted ectopy overnight including VT > 30 seconds (03/21/16) - telemetry (03/22/16) --> few brief episodes of NSVT overnight - case d/w Cardiology, Dr. Randhawa (03/21/16) - Pt underwent LHC with Dr. Randhawa (03/21/16) - patent stent - mild CAD - Case d/w Dr. Blair (03/21/16) - Pt to have EP study 03/24/16, possible AICD (2) Diabetic nephropathy Status: Chronic Plan: - SSI (3) Hypertension Status: Chronic Plan: - stable - norvasc, lopressor, lisinopril (4) Chronic pain Status: Chronic Plan: - prn oxycodone/prn morphine Problem Qualifiers (1) Diabetic nephropathy: Qualified Code: E11.21 - Diabetic nephropathy associated with type 2 diabetes mellitus (2) Hypertension: Qualified Code: I10 - Essential hypertension Kurt Marino DO Mar 22, 2016 13:04
--- NOTE | 2016-03-22 14:36 | EC ---
Study Study Date:03/22/2016 STUDY CONCLUSIONS SUMMARY - Left ventricle: The cavity size was normal. Wall thickness was normal. Systolic function was normal. The estimated ejection fraction was in the range of 50% to 55%. Regional wall motion abnormalities cannot be excluded. - Aortic valve: Valve area: 1.45cm^2(VTI). Valve area: 1.46cm^2 (Vmax). - Left atrium: The atrium was mildly dilated. If LV function is below 40, please consider prescribing an ACEI or ARB or document rationale for non-use. PROCEDURE DATA STUDY STATUS: Elective. Procedure: Transthoracic echocardiography. Image quality was fair. Scanning was performed from the parasternal, apical, and subcostal acoustic windows. Study completion: The patient tolerated the procedure well. Transthoracic echocardiography. M-mode, complete 2D, complete spectral Doppler, and color Doppler. Height: Height: 71in. Weight: Weight: 274.4lb. Body mass index: BMI: 38.4kg/m^2. Body surface area: BSA: 2.41m^2. Patient status: Inpatient. CARDIAC ANATOMY LEFT VENTRICLE: The cavity size was normal. Wall thickness was normal. Systolic function was normal. The estimated ejection fraction was in the range of 50% to 55%. Regional wall motion abnormalities cannot be excluded. AORTIC VALVE: Poorly visualized. Mildly thickened, mildly calcified leaflets. Doppler: Transvalvular velocity was within the normal range. There was no stenosis. No regurgitation. Valve area: 1.45cm^2(VTI). Indexed valve area: 0.6cm^2/m^2 (VTI). Valve area: 1.46cm^2 (Vmax). Indexed valve area: 0.61cm^2/m^2 (Vmax). Mean gradient: 5mm Hg (S). AORTA: Aortic root: The aortic root was normal in size. MITRAL VALVE: Structurally normal valve. Doppler: Transvalvular velocity was within the normal range. There was no evidence for stenosis. No regurgitation. LEFT ATRIUM: The atrium was mildly dilated. RIGHT VENTRICLE: The cavity size was normal. Wall thickness was normal. PULMONIC VALVE: Poorly visualized. Doppler: Transvalvular velocity was within the normal range. There was no evidence for stenosis. No regurgitation. TRICUSPID VALVE: Poorly visualized. Structurally normal valve. Doppler: Transvalvular velocity was within the normal range. No regurgitation. PULMONARY ARTERY: The main pulmonary artery was normal-sized. RIGHT ATRIUM: The atrium was normal in size. PERICARDIUM: There was no pericardial effusion. Patient weight: 274.4lb _Ejection fraction:_ 65-75% _Fractional shortening:_ 32% up to 5Kg 5-11.5Kg 11.6-22.9Kg 23-45Kg 45-57Kg Aortic Root 7-13 <17 13-22 17-27 17-27 LA diam 6-13 <23 24-38 33-47 37-40 RVID 10-17 7-15 7-15 7-18 8-17 LVIDd 12-22 <32 24-38 33-47 37-40 LVPW 2-4 3-6 5-7 6-8 7-8 IVS 2-4 3-6 5-7 6-8 7-8 BASIC MEASUREMENTS ADULT NORMAL Left ventricle LV internal dimension, ED, chordal 51.2 mm 43-52 level, PLAX LV internal dimension, ES, chordal *40.6 mm 23-38 level, PLAX Fractional shortening, chordal level, *21 % >29 PLAX LV posterior wall thickness, ED 10.8 mm IVS/LVPW ratio, ED 0.99 <1.3 Ventricular septum Septal thickness, ED 10.7 mm Aortic valve Leaflet separation 23 mm 15-26 Aorta Root diameter, ED 31 mm Left atrium Anterior-posterior dimension 48 mm Anterior-posterior dimension index 1.99 cm/m^2 <2.2 BASIC MEASUREMENTS ADULT NORMAL Aortic valve Leaflet separation 23 mm 15-26 DOPPLER MEASUREMENTS ADULT NORMAL Aortic valve Peak velocity, S 150 cm/s Mean velocity, S 106 cm/s VTI, S 26.9 cm Mean gradient, S 5 mm Hg Valve area, VTI 1.45 cm^2 Valve area index, VTI 0.6 cm^2/m^2 Valve area, Vmax 1.46 cm^2 Valve area index, Vmax 0.61 cm^2/m^2 Mitral valve Peak E-wave velocity 67.1 cm/s Peak A-wave velocity 73.5 cm/s Peak E/A ratio 0.9 LEGEND: Mean values are shown as u=mean value. Asterisk (*) elaine values outside specified normal range. Prepared and signed by Laith Agudelo [id number]
[2016-03-22] MEDS: ATORVASTATIN 40 MG TAB PO SCH (21:46)
[2016-03-22] MEDS: LORazepam 1 MG TAB PO SCH (21:47)
[2016-03-23] VITALS (22 sets, daily range): BP systolic 111–133; BP diastolic 56–87; PULSE 54–71; RESP 16–20; TEMP 97.8–98.4; O2SAT 93–97
[2016-03-23] MEDS ORDERED: LORazepam 2 MG/ML VIAL IV SCH (00:15)
[2016-03-23] MEDS: INSULIN ASPART SUPPLEMENTAL SCALE SQ SCH ×4 (07:00→21:00)
[2016-03-23] MEDS: METOPROLOL TARTRATE 50 MG TAB PO SCH (09:39)
[2016-03-23] MEDS: ASPIRIN 81 MG CHEW TAB CHEW SCH (09:39)
[2016-03-23] MEDS: VENLAFAXINE HCL XR 75 MG CAP PO SCH (09:39)
[2016-03-23] MEDS: LISINOPRIL 20 MG TAB PO SCH (09:39)
[2016-03-23] MEDS: CLOPIDOGREL 75 MG TAB PO SCH (09:39)
[2016-03-23] MEDS: GABAPENTIN 400 MG CAP PO SCH ×3 (09:39→18:00)
[2016-03-23] MEDS: SODIUM CHLORIDE 0.9% FLUSH 5 ML FLUSH IVF SCH ×2 (09:40→20:16)
--- NOTE | 2016-03-23 16:53 | HHI.PR ---
Subjective Remarks No new complaints. No new cardiac events. Objective Vitals Vital Signs Date Time Temp Pulse Resp B/P Pulse Ox O2 Delivery O2 Flow Rate FiO2 03/23/16 15:00 98.4 58 20 119/65 96 03/23/16 15:00 71 03/23/16 14:00 64 03/23/16 13:00 68 03/23/16 12:00 60 03/23/16 11:00 57 18 126/76 95 03/23/16 11:00 57 03/23/16 10:00 56 03/23/16 09:00 59 03/23/16 08:00 54 03/23/16 07:00 54 03/23/16 07:00 98.1 54 18 133/87 97 03/23/16 06:00 54 03/23/16 05:00 56 03/23/16 04:00 62 03/23/16 03:00 62 03/23/16 03:00 98.0 64 16 117/71 95 03/23/16 02:00 66 03/23/16 00:00 64 03/22/16 23:00 98.3 62 14 140/81 94 03/22/16 23:00 64 03/22/16 22:00 68 03/22/16 21:00 68 03/22/16 20:00 68 03/22/16 19:00 69 03/22/16 19:00 98.3 72 18 128/83 96 03/22/16 18:00 64 03/22/16 17:00 68 03/22/16 03/22/16 03/23/16 15:00 23:00 07:00 Intake Total 520 ml 240 ml Output Total 1350 ml Balance -830 ml 240 ml Intake Oral 520 ml 240 ml Output Urine Total 1350 ml # Voids 3 # Bowel Movements 0 Result Diagram: 03/22/16 0630 03/22/16 0630 Imaging Last 72 hours Impressions Chest X-Ray 03/20/16 1726 Signed Impressions: Service Date/Time: March 17:40 - CONCLUSION: No evidence of pulmonary disease. Edwin Sandhu MD Objective Remarks GENERAL: This is a well-nourished, well-developed patient, in no apparent distress. CARDIOVASCULAR: Regular rate and rhythm without murmurs, gallops, or rubs. RESPIRATORY: Clear to auscultation. Breath sounds equal bilaterally. No wheezes , rales, or rhonchi. GASTROINTESTINAL: Abdomen soft, non-tender, nondistended. Normal active bowel sounds MUSCULOSKELETAL: Extremities without clubbing, cyanosis, or edema. NEURO: Alert & Oriented x4 to person, place, time, situation. Moves all ext x4 A/P Problem List: (1) Wide-complex tachycardia Status: Acute Plan: - Patient has history of paroxysmal ventricular tachyarrhythmia. - telemetry noted ectopy overnight including VT > 30 seconds (03/21/16) - telemetry (03/22/16) --> few brief episodes of NSVT overnight - case d/w Cardiology, Dr. Randhawa (03/21/16) - Pt underwent LHC with Dr. Randhawa (03/21/16) - patent stent - mild CAD - Case d/w Dr. Blair (03/21/16) - Pt to have EP study 03/24/16, possible AICD 03/23/16 - pt interviewed and examined - continue current treatment plan (2) Diabetic nephropathy Status: Chronic Plan: - SSI (3) Hypertension Status: Chronic Plan: - stable - norvasc, lopressor, lisinopril (4) Chronic pain Status: Chronic Plan: - prn oxycodone/prn morphine Problem Qualifiers (1) Diabetic nephropathy: Qualified Code: E11.21 - Diabetic nephropathy associated with type 2 diabetes mellitus (2) Hypertension: Qualified Code: I10 - Essential hypertension Kurt Marino DO Mar 23, 2016 16:53
[2016-03-23] MEDS: LORazepam 1 MG TAB PO SCH (20:16)
[2016-03-23] MEDS: ATORVASTATIN 40 MG TAB PO SCH (20:16)
[2016-03-24] VITALS (21 sets, daily range): BP systolic 108–156; BP diastolic 71–82; PULSE 58–122; RESP 16–18; TEMP 97.8–98.3; O2SAT 93–96
[2016-03-24] MEDS: MORPHINE SULFATE 4 MG/ML INJ IV PUSH PRN (00:06)
[2016-03-24] MEDS: INSULIN ASPART SUPPLEMENTAL SCALE SQ SCH ×4 (07:00→20:22)
[2016-03-24] MEDS: CLOPIDOGREL 75 MG TAB PO SCH (08:23)
[2016-03-24] MEDS: GABAPENTIN 400 MG CAP PO SCH ×3 (08:23→17:38)
[2016-03-24] MEDS: VENLAFAXINE HCL XR 75 MG CAP PO SCH (08:23)
[2016-03-24] MEDS: LISINOPRIL 20 MG TAB PO SCH (08:23)
[2016-03-24] MEDS: ASPIRIN 81 MG CHEW TAB CHEW SCH (08:24)
[2016-03-24] MEDS: SODIUM CHLORIDE 0.9% FLUSH 5 ML FLUSH IVF SCH ×2 (08:24→20:25)
--- NOTE | 2016-03-24 08:56 | HHI.PR ---
Subjective Remarks comfortable. Objective Vitals heart reg lung cta abd s/nt ext no edema Vital Signs Date Time Temp Pulse Resp B/P Pulse Ox O2 Delivery O2 Flow Rate FiO2 03/24/16 08:00 70 03/24/16 06:00 61 03/24/16 04:00 97.8 66 16 156/78 94 03/24/16 04:00 66 03/24/16 02:00 58 03/24/16 01:00 58 03/24/16 00:00 63 03/23/16 23:00 97.8 63 16 128/63 93 03/23/16 23:00 63 03/23/16 22:00 58 03/23/16 20:00 58 03/23/16 20:00 70 03/23/16 19:00 97.8 58 20 111/56 94 03/23/16 18:00 62 03/23/16 17:00 57 03/23/16 16:54 56 03/23/16 15:00 98.4 58 20 119/65 96 03/23/16 15:00 71 03/23/16 14:00 64 03/23/16 13:00 68 03/23/16 12:00 60 03/23/16 11:00 57 18 126/76 95 03/23/16 11:00 57 03/23/16 10:00 56 03/23/16 09:00 59 03/23/16 03/23/16 03/24/16 15:00 23:00 07:00 Intake Total 460 ml 240 ml Output Total 660 ml Balance -200 ml 240 ml Intake Oral 460 ml 240 ml Output Urine Total 660 ml # Voids 3 # Bowel Movements 0 Result Diagram: 03/22/16 0630 03/22/16 0630 Imaging Last 72 hours Impressions Chest X-Ray 03/20/16 1726 Signed Impressions: Service Date/Time: March 17:40 - CONCLUSION: No evidence of pulmonary disease. Edwin Sandhu MD A/P Problem List: (1) Wide-complex tachycardia Status: Acute Plan: - Patient has history of paroxysmal ventricular tachyarrhythmia. - telemetry noted VT > 30 seconds (03/21/16) - case d/w Cardiology, Dr. Randhawa (03/21/16) - Pt underwent LHC with Dr. Randhawa (03/21/16) - patent stent - mild CAD - Case d/w Dr. Blair (03/21/16) - Pt to have EP study 03/24/16, possible AICD d/c home when ok with cardiology (2) Diabetic nephropathy Status: Chronic Plan: - SSI (3) Hypertension Status: Chronic Plan: - stable - norvasc, lopressor, lisinopril (4) Chronic pain Status: Chronic Plan: - prn oxycodone/prn morphine Problem Qualifiers (1) Diabetic nephropathy: Qualified Code: E11.21 - Diabetic nephropathy associated with type 2 diabetes mellitus (2) Hypertension: Qualified Code: I10 - Essential hypertension Cesario Beckham MD Mar 24, 2016 08:55 (2) Hypertension: Qualified Code: I10 - Essential hypertension Cesario Beckham MD Mar 24, 2016 08:55
[2016-03-24] MEDS: ATORVASTATIN 40 MG TAB PO SCH (20:21)
[2016-03-24] MEDS: LORazepam 1 MG TAB PO SCH (20:21)
[2016-03-24] MEDS: LORazepam 2 MG/ML VIAL IV PUSH PRN (21:49)
[2016-03-25] VITALS (30 sets, daily range): BP systolic 97–161; BP diastolic 62–93; PULSE 66–129; RESP 12–18; TEMP 97.6–98.5; O2SAT 92–95
[2016-03-25] MEDS: INSULIN ASPART SUPPLEMENTAL SCALE SQ SCH ×4 (05:46→20:29)
--- NOTE | 2016-03-25 08:36 | HHI.PR ---
Subjective Remarks comfortable. Objective Vitals heart reg lung cta abd s/nt ext no edema Vital Signs Date Time Temp Pulse Resp B/P Pulse Ox O2 Delivery O2 Flow Rate FiO2 03/25/16 08:06 98.5 70 12 115/66 93 03/25/16 07:27 66 03/25/16 06:00 66 03/25/16 05:00 67 03/25/16 04:00 97.9 69 17 97/64 92 03/25/16 04:00 68 03/25/16 03:00 69 03/25/16 02:00 72 03/25/16 01:00 74 03/25/16 00:00 98.0 76 16 107/62 92 03/25/16 00:00 83 03/24/16 23:00 70 03/24/16 22:00 78 03/24/16 21:00 80 03/24/16 20:00 72 03/24/16 20:00 86 03/24/16 20:00 97.8 71 18 130/79 94 03/24/16 18:00 86 03/24/16 17:00 80 03/24/16 16:00 98.3 76 18 121/82 96 03/24/16 16:00 75 03/24/16 15:00 74 03/24/16 14:00 82 03/24/16 13:00 122 03/24/16 12:00 74 03/24/16 12:00 98.0 67 16 108/71 95 03/24/16 11:00 76 03/24/16 10:00 62 03/24/16 09:00 74 03/24/16 03/24/16 03/25/16 15:00 23:00 07:00 Intake Total 620 ml 480 ml Output Total 775 ml Balance -155 ml 480 ml Intake Oral 620 ml 480 ml Output Urine Total 775 ml # Voids 2 # Bowel Movements 1 0 Result Diagram: 03/22/16 0630 03/22/16 0630 Imaging Last 72 hours Impressions Chest X-Ray 03/20/16 7506 Signed Impressions: Service Date/Time: March 17:40 - CONCLUSION: No evidence of pulmonary disease. Edwin Sandhu MD A/P Problem List: (1) Wide-complex tachycardia Status: Acute Plan: - Patient has history of paroxysmal ventricular tachyarrhythmia. - telemetry noted VT > 30 seconds (03/21/16) - case d/w Cardiology, Dr. Randhawa (03/21/16) - Pt underwent LHC with Dr. Randhawa (03/21/16) - patent stent - mild CAD - Discussed with dr Blair. unable to do eps yesterday or today due to no available room..planned for tomorrow at 8am. will probably d/c home on . (2) Diabetic nephropathy Status: Chronic Plan: - SSI (3) Hypertension Status: Chronic Plan: - stable - norvasc, lopressor, lisinopril (4) Chronic pain Status: Chronic Plan: - prn oxycodone/prn morphine Problem Qualifiers (1) Diabetic nephropathy: Qualified Code: E11.21 - Diabetic nephropathy associated with type 2 diabetes mellitus (2) Hypertension: Qualified Code: I10 - Essential hypertension Cesario Beckham MD Mar 25, 2016 08:36
--- NOTE | 2016-03-25 08:40 | MB ---
cc: MARIE RANDHAWA MD, QUIXA M.D. SCHWARTZ, EDWARD B. DO ASIHENE, REGINA J. M.D. DATE OF CONSULTATION: 03/21/2016. REASON FOR CONSULTATION: Management of ventricular tachycardia. REFERRING PHYSICIAN: Dr. Randhawa. Dr. Marino. HISTORY OF PRESENT ILLNESS: Mr. Shannon is a 71-year-old gentleman who presented to the VT with wide complex tachycardia. Actually he was getting a tooth traction and was found to have tachycardia. He was immediately transferred to the [place] [facility]. He was put on amiodarone drip and admitted. He did have cardiac catheterization with Dr. Randhawa today, which showed an ejection fraction of 60% with patent obtuse marginal stents along with left anterior descending 20% and circumflex 50% stenosis. Of note, he did have a history of myocardial infarction in the past status post obtuse marginal stenting by Dr. White. 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 I did discuss in detail with the patient and his family one of the options would be discharge home with a beta shivani or calcium channel shivani and arrange for outpatient ventricular tachycardia, but his family is very concerned about the safety of the patient and they want to wait until the electrophysiology study and ablation is done here in the hospital. PAST MEDICAL HISTORY: As above. He also has: 1. Hepatitis C. 2. COPD. 3. Chronic renal disease. 4. Diabetes. 5. Back pain. 6. Hypercholesterolemia. 7. Diabetes. PAST SURGICAL HISTORY: 1. Back surgery. 2. Left . 3. Cardiac catheterization with stents placed by Dr. White in the obtuse marginal and also had cardiac catheterization today by Dr. Randhawa. MEDICATIONS: 1. Atorvastatin 40 milligrams. 2. 10 milligrams. 3. Gabapentin. 4. Lisinopril. 5. Effexor. 6. Metoprolol 50 milligrams twice a day. 7. Plavix 75 milligrams. 8. Aspirin 81 milligrams. ALLERGIES: NO KNOWN DRUG ALLERGIES. FAMILY HISTORY: His family history is significant for CVA at early age. SOCIAL HISTORY: He has quit smoking. REVIEW OF SYSTEMS: HEAD, EYES, EARS, NOSE, THROAT: Normal. GASTROINTESTINAL: No nausea or vomiting. GENITOURINARY: No dysuria. MUSCULOSKELETAL: Fatigue. CARDIOVASCULAR: As above. RESPIRATORY: Some dyspnea. ENDOCRINE: Normal. SKIN: Normal. PSYCHIATRIC: Normal. WIRE INSERTER: Occasional dizziness. PHYSICAL EXAMINATION: VITAL SIGNS: The patient has blood pressure of 155/87 with pulse in the 90s. The patient is afebrile. 02 saturation is 95% on room air. HEAD, EYES, EARS, NOSE, THROAT: Normal oral exam. Pupils equal, round and reactive to light and accommodation. ENDOCRINE: There is no thyroid enlargement. LYMPHATIC: No lymphadenopathy. RESPIRATORY: Decreased breath sounds bilaterally but no crackles, no wheezing. CARDIOVASCULAR: Regular. Occasional ectopy. No loud murmurs. Normal S1 and S2. GASTROINTESTINAL: Active bowel sounds all four quadrants. No tenderness. GENITOURINARY: Deferred. MUSCULOSKELETAL: All range of motion. SKIN: There is no ecchymosis. No hematoma. NEUROLOGIC: There is no focal neurologic deficits. LABORATORY TESTS: Potassium is 4.1, creatinine 1.22. Hematocrit 48. CARDIOLOGY STUDIES: Cardiac catheterization showed no significant coronary artery disease, needs percutaneous coronary intervention. ASSESSMENT: 1. 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 2. Diabetic nephropathy with underlying diabetes. 3. Hypertension. 4. Hypercholesterolemia. 5. Coronary artery disease status post obtuse marginal stenting with history of myocardial infarction in the past. PLAN: I did discuss with the patient and his son regarding all the options. One option to consider is to schedule for outpatient procedure and he can try a beta shivani or a calcium channel shivani but his family is very concerned about the safety of the patient and they want him to have the ablation done during his hospital stay and would prefer to go home afterwards. I do think this is a reasonable option. I will arrange the electrophysiology study with ablation once the sugar laboratory assistant schedule allows him early next week. I did discuss the risks, benefits, and alternatives of the procedure with the patient which include but are not limited to infection, bleeding, stroke, perforation of the heart, recurrent pericardiocentesis all requiring surgery. He has given consent for electrophysiology study and ablation including usage of intracardiac ultrasound and mapping of the aortic cusp. I will continue aspirin and Plavix for history of coronary artery disease and stenting. Continue metoprolol 50 milligrams. In the meantime, will discontinue the amiodarone, continue lisinopril and amlodipine for hypertension. Continue atorvastatin. Thank you Dr. Randhawa, Dr. Marino and Dr. Barry. MD VALERIA Larson/JIN /8:03 PM /8:38 AM MTDD
[2016-03-25] MEDS: LISINOPRIL 20 MG TAB PO SCH (09:16)
[2016-03-25] MEDS: CLOPIDOGREL 75 MG TAB PO SCH (09:17)
[2016-03-25] MEDS: ASPIRIN 81 MG CHEW TAB CHEW SCH (09:17)
[2016-03-25] MEDS: VENLAFAXINE HCL XR 75 MG CAP PO SCH (09:18)
[2016-03-25] MEDS: GABAPENTIN 400 MG CAP PO SCH ×3 (09:18→17:32)
[2016-03-25] MEDS: SODIUM CHLORIDE 0.9% FLUSH 5 ML FLUSH IVF SCH ×2 (09:19→20:26)
[2016-03-25] MEDS: ATORVASTATIN 40 MG TAB PO SCH (20:26)
[2016-03-25] MEDS: LORazepam 1 MG TAB PO SCH (20:26)
[2016-03-25] MEDS: LORazepam 2 MG/ML VIAL IV PUSH PRN (21:54)
[2016-03-26] VITALS (22 sets, daily range): BP systolic 105–157; BP diastolic 67–92; PULSE 66–94; RESP 12–21; TEMP 97.6–98.7; O2SAT 91–96
[2016-03-26] MEDS: INSULIN ASPART SUPPLEMENTAL SCALE SQ SCH ×4 (06:07→19:52)
[2016-03-26] MEDS: LORazepam 2 MG/ML VIAL IV PUSH PRN ×2 (06:10→21:29)
[2016-03-26] MEDS ORDERED: HYDROmorphone HCL PF 2 MG/ML VIAL ONE (08:00)
[2016-03-26] MEDS ORDERED: MIDAZOLAM HCL 2 MG/2 ML VIAL ONE (08:00)
[2016-03-26] MEDS ORDERED: fentaNYL CITRATE 250 MCG/5 ML AMP ONE (08:01)
[2016-03-26] MEDS ORDERED: HEPARIN-NS/PF INJ 500 ML ONE (08:05)
--- NOTE | 2016-03-26 08:57 | PD.CARD.PN ---
Subjective Subjective Remarks no other major complaints. no dizziness Objective Medications Current Medications Medications (Trade) Dose Ordered Sig/Az Route Start Time Stop Time Status Last Admin (Morphine Inj) 2 mg Q4HR PRN IV PUSH 03/20/16 21:15 03/24/16 00:06 (Norvasc) 10 mg DAILY PO 03/21/16 09:00 03/25/16 09:18 (Lipitor) 40 mg HS PO 03/21/16 21:00 03/25/16 20:26 (Neurontin) 800 mg TID PO 03/21/16 09:00 03/25/16 17:32 (Prinivil) 40 mg DAILY PO 03/21/16 09:00 03/25/16 09:16 (Ativan) 1 mg HS PO 03/21/16 21:00 03/25/16 20:26 (Effexor Xr) 225 mg DAILY PO 03/21/16 09:00 03/25/16 09:18 (Plavix) 75 mg DAILY PO 03/21/16 09:00 03/25/16 09:17 (Aspirin Chew) 81 mg DAILY CHEW 03/21/16 09:00 03/25/16 09:17 (NS Flush) 2 ml BID IVF 03/21/16 21:00 03/25/16 20:26 (NS Flush) 2 ml UNSCH PRN IVF 03/21/16 10:30 (Roxicodone) 5 mg Q8HR PRN PO 03/21/16 11:30 03/26/16 06:10 (Ativan Inj) 1 mg Q6H PRN IV PUSH 03/23/16 18:00 03/26/16 06:10 Vital Signs / I&O Vital Signs Date Time Temp Pulse Resp B/P Pulse Ox O2 Delivery O2 Flow Rate FiO2 03/26/16 07:38 75 03/26/16 07:20 97.9 84 12 122/80 95 03/26/16 06:00 79 03/26/16 05:00 68 03/26/16 04:00 97.9 73 16 118/77 92 03/26/16 04:00 66 03/26/16 03:00 75 03/26/16 02:00 81 03/26/16 01:00 79 03/26/16 00:00 98.3 94 16 157/92 94 03/26/16 00:00 86 03/25/16 23:00 120 03/25/16 22:00 84 03/25/16 21:00 78 03/25/16 20:00 78 03/25/16 20:00 98.1 87 18 147/88 95 03/25/16 19:00 87 03/25/16 18:07 88 03/25/16 17:50 88 03/25/16 16:13 114 03/25/16 16:00 97.6 83 12 161/93 93 03/25/16 15:14 80 03/25/16 14:30 86 03/25/16 13:38 86 03/25/16 12:26 113 03/25/16 12:08 87 03/25/16 12:08 109 03/25/16 11:52 95 03/25/16 11:13 98.1 82 15 122/73 95 03/25/16 10:48 88 03/25/16 10:41 87 03/25/16 10:30 129 03/25/16 09:09 67 I/O 03/25/16 03/25/16 03/25/16 03/26/16 03/26/16 03/26/16 07:00 15:00 23:00 07:00 15:00 23:00 Intake Total 480 ml 620 ml Balance 480 ml 620 ml Intake Oral 480 ml 620 ml # Voids 2 1 # Bowel Movements 0 Physical Exam GENERAL: SKIN: Warm and dry. HEAD: Atraumatic. Normocephalic. EYES: Pupils equal and round. No scleral icterus. No injection or drainage. ENT: No nasal bleeding or discharge. Mucous membranes pink and moist. NECK: Trachea midline. No JVD. CARDIOVASCULAR: Regular rate and rhythm. RESPIRATORY: No accessory muscle use. Clear to auscultation. Breath sounds equal bilaterally. GASTROINTESTINAL: Abdomen soft, non-tender, nondistended. Hepatic and splenic margins not palpable. MUSCULOSKELETAL: Extremities without clubbing, cyanosis, or edema. No obvious deformities. NEUROLOGICAL: Awake and alert. No obvious cranial nerve deficits. Motor grossly within normal limits. Five out of 5 muscle strength in the arms and legs. Normal speech. PSYCHIATRIC: Appropriate mood and affect; insight and judgment normal. Laboratory Laboratory Tests Test 03/26/16 06:10 Blood Type O POSITIVE Antibody Screen NEGATIVE Assessment and Plan Problem List: (1) Ventricular tachycardia (2) Hypertension (3) Diabetic nephropathy (4) Chronic pain Assessment and Plan consider VT ablation. cont current BP meds Discussed Condition With pt and his family Problem Qualifiers (1) Hypertension: Qualified Code: I10 - Essential hypertension (2) Diabetic nephropathy: Qualified Code: E11.21 - Diabetic nephropathy associated with type 2 diabetes mellitus Marino Blair MD Mar 26, 2016 08:57
[2016-03-26] MEDS: CLOPIDOGREL 75 MG TAB PO SCH (09:00)
--- NOTE | 2016-03-26 09:36 | HHI.PR ---
Subjective Remarks awaiting eps Objective Vitals heart reg lung cta abd s/nt ext no edema Vital Signs Date Time Temp Pulse Resp B/P Pulse Ox O2 Delivery O2 Flow Rate FiO2 03/26/16 07:38 75 03/26/16 07:20 97.9 84 12 122/80 95 03/26/16 06:00 79 03/26/16 05:00 68 03/26/16 04:00 97.9 73 16 118/77 92 03/26/16 04:00 66 03/26/16 03:00 75 03/26/16 02:00 81 03/26/16 01:00 79 03/26/16 00:00 98.3 94 16 157/92 94 03/26/16 00:00 86 03/25/16 23:00 120 03/25/16 22:00 84 03/25/16 21:00 78 03/25/16 20:00 78 03/25/16 20:00 98.1 87 18 147/88 95 03/25/16 19:00 87 03/25/16 18:07 88 03/25/16 17:50 88 03/25/16 16:13 114 03/25/16 16:00 97.6 83 12 161/93 93 03/25/16 15:14 80 03/25/16 14:30 86 03/25/16 13:38 86 03/25/16 12:26 113 03/25/16 12:08 87 03/25/16 12:08 109 03/25/16 11:52 95 03/25/16 11:13 98.1 82 15 122/73 95 03/25/16 10:48 88 03/25/16 10:41 87 03/25/16 10:30 129 03/25/16 03/25/16 03/26/16 15:00 23:00 07:00 Intake Total 620 ml Balance 620 ml Intake Oral 620 ml # Voids 1 Result Diagram: 03/22/1662903/22/16629 Imaging Last 72 hours Impressions Chest X-Ray 03/20/16 3156 Signed Impressions: Service Date/Time: March 17:40 - CONCLUSION: No evidence of pulmonary disease. Edwin Sandhu MD A/P Problem List: (1) Wide-complex tachycardia Status: Acute Plan: - Patient has history of paroxysmal ventricular tachyarrhythmia. - amiodarone gtt - telemetry noted ectopy overnight including VT > 30 seconds - case d/w Cardiology, Dr. Randhawa (03/21/16) - Pt underwent LHC with Dr. Randhawa (03/21/16) - patent stent - mild CAD - Case d/w Dr. Blair - eps today. (2) Diabetic nephropathy Status: Chronic Plan: - SSI (3) Hypertension Status: Chronic Plan: - stable - norvasc, lopressor, lisinopril (4) Chronic pain Status: Chronic Plan: - prn oxycodone/prn morphine Problem Qualifiers (1) Diabetic nephropathy: Qualified Code: E11.21 - Diabetic nephropathy associated with type 2 diabetes mellitus (2) Hypertension: Qualified Code: I10 - Essential hypertension Cesario Beckham MD Mar 26, 2016 09:35
[2016-03-26] MEDS ORDERED: HEPARIN SODIUM - IV 10,000 UNITS/10 ML VIAL ONE (09:49)
[2016-03-26] MEDS ORDERED: PROTAMINE SULFATE 50 MG/5 ML VIAL ONE (10:48)
[2016-03-26] MEDS ORDERED: IODIXANOL 320 MG/ML 50 ML VIAL (for EPS) IV ONE (11:00)
[2016-03-26] MEDS ORDERED: BACITRACIN OINT 0.9 GM PKT TOP ONE (11:00)
[2016-03-26] MEDS ORDERED: PROPOFOL 200 MG/20 ML AMP IV ONE (11:00)
[2016-03-26] MEDS ORDERED: ATROPINE SULFATE 1 MG/ML VIAL IV PRN (11:00)
[2016-03-26] MEDS ORDERED: ONDANSETRON HCL 4 MG/2 ML VIAL IV PRN (11:00)
[2016-03-26] MEDS ORDERED: ONDANSETRON HCL 4 MG/2 ML VIAL IV PUSH ONE (11:00)
[2016-03-26] MEDS ORDERED: SODIUM CHLOR 0.9% 250 ML INJ 250 ML IV PRN (11:00)
[2016-03-26] MEDS ORDERED: LIDOCAINE HCL 1% 50 ML VIAL INFIL PRN (11:00)
--- NOTE | 2016-03-26 12:56 | MA ---
cc: BRODY MARINO HUIJIAN JAMES MD MINOR,GUS GRAHAM M.D. DATE: 03/26/2016 DATE OF : 1945 CLINICAL INDICATION The patient is a 71-year-old gentleman presenting with symptomatic VT and PVCs. So far the VT is more consistent with LVOT or aortic cusp VT given that V2 is positive. The patient has tried medication without success thus the patient came in for EP study with VT ablation. PROCEDURE IN DETAIL The patient was sedated by minimal sedation. The patient was prepped and draped in sterile fashion. Right femoral veins were accessed and two 6-Tunisian sheaths were placed. We also accessed the right femoral artery using ultrasound guidance. It was difficult to access. We were able to get access in the right femoral artery and it was enlarged to a 9-Tunisian Arrow sheath. We also obtained a 10.5 sheath in the left femoral vein and later a 6-Tunisian sheath in the left femoral artery. The patient was noted to have sinus with some PVCs. So far the mapping of the PVCs was mapped to the aortic cusp. With the help of intracardiac ultrasound we were able to locate the PVCs earliest activation to the junction between the left and right coronary cusp and just below the left main coronary artery. We did inject coronary angiogram using JL5. So far there is at least 3-4 mm away from the coronary artery with the use of low power 30 crump to get ablation done. So far after ablation using Flex ThermoCool D/F catheters there are no PVCs afterwards noted. The patient was put on isoproterenol. We did the stimulation. So far there is no inducible VT with V1, V2, V3, V4, up to 200 milliseconds with V2/V3/V4. We did do a basic EP study. The patient is in sinus with PVCs, 748 milliseconds in the beginning of the case. UT interval was 176 milliseconds, QRS 90 milliseconds, QT 398 milliseconds, AH 96 milliseconds, HV 56 milliseconds. So far the earliest activation of PVC is -50 milliseconds prior to QRS onset. The patient again was put on isoproterenol. There were no PVCs afterwards noted during isoproterenol and a washout. We did use intracardiac ultrasound to visualize other cardiac structures including aortic cusp, LV, RV and atrial septum. So far that ablation point is aortic cusp junction between left and right coronary cusp and below the left main. Heparin was given during the procedure to keep ACT above 300. Then protamine was given after ablation was completed. Hemostasis was obtained by manual pressure. CONCLUSIONS 1. Successful VT ablation with ablation of VT and PVC in the junction between the left and right coronary cusp. 2. Coronary angiography to verify position, far from left main coronary artery. 3. Use of intracardiac ultrasound to guide the ablation. 4. Basic EP study. 5. With V1, V2, V3, V4, did not induce any sustained VT after successful ablation. 6. Isoproterenol drug test and programmed stimulation. We did use a Flex D/F catheter for ablation and we also used MARILYN for 3-D mapping. 7. The patient tolerated the procedure without any problem. PLAN We are going to keep her in the groin access given the large multiple sheaths. The patient will be continued on aspirin along with low-dose metoprolol. Follow-up with me in the next two weeks. Thank you Dr. Randhawa and Dr. Marino and Dr. Barry. MD VALERIA Larson/FELIX /11:03 AM /12:54 PM
[2016-03-26] MEDS: GABAPENTIN 400 MG CAP PO SCH ×3 (13:00→18:00)
[2016-03-26] MEDS: VENLAFAXINE HCL XR 75 MG CAP PO SCH (16:20)
[2016-03-26] MEDS: ASPIRIN 81 MG CHEW TAB CHEW SCH (16:20)
[2016-03-26] MEDS: LISINOPRIL 20 MG TAB PO SCH (16:20)
[2016-03-26] MEDS: SODIUM CHLORIDE 0.9% FLUSH 5 ML FLUSH IVF SCH ×2 (16:25→19:51)
[2016-03-26] MEDS: ATORVASTATIN 40 MG TAB PO SCH (19:51)
[2016-03-26] MEDS: METOPROLOL TARTRATE 25 MG TAB PO SCH (19:51)
[2016-03-26] MEDS: LORazepam 1 MG TAB PO SCH (19:51)
[2016-03-27] VITALS (9 sets, daily range): BP systolic 144–168; BP diastolic 78–101; PULSE 7–78; RESP 18–20; TEMP 98–98.4; O2SAT 95–96
[2016-03-27] MEDS: MORPHINE SULFATE 4 MG/ML INJ IV PUSH PRN (00:50)
--- NOTE | 2016-03-27 04:56 | EKG ---
Date Performed: 03/26/2016 Time Performed: 19:52:12 PTAGE: 71 years EKG: Sinus rhythm Possible inferior infarct - age undetermined Abnormal ECG COMPARED TO PRIOR ELECTROCARDIOGRAM, Wide- complex tachycardia is no longer present. PREVIOUS TRACING : 03/20/2016 17.20 DOCTOR: Laith Agudelo Interpretating Date/Time 03/27/2016 04:55:20
--- NOTE | 2016-03-27 07:50 | HHI.PR ---
Subjective Remarks ready to go home no pain at groin sites Objective Vitals heart reg lung cta abd s/nt ext no edema Vital Signs Date Time Temp Pulse Resp B/P Pulse Ox O2 Delivery O2 Flow Rate FiO2 03/27/16 05:00 70 03/27/16 04:11 98.0 78 18 163/101 95 03/27/16 04:11 73 03/27/16 03:00 74 03/27/16 02:00 73 03/27/16 01:00 72 03/27/16 00:00 98.1 74 20 168/96 96 03/27/16 00:00 70 03/26/16 23:00 72 03/26/16 22:00 66 03/26/16 21:00 70 03/26/16 20:00 70 03/26/16 20:00 97.9 91 21 128/90 94 03/26/16 19:00 91 03/26/16 18:00 86 03/26/16 17:00 87 03/26/16 16:27 98.7 90 18 106/68 93 03/26/16 16:00 98.0 88 16 108/67 96 03/26/16 15:00 93 03/26/16 12:43 97.6 85 13 105/81 91 03/26/16 12:23 87 03/26/16 12:21 88 13 92 03/26/16 03/26/16 03/27/16 15:00 23:00 07:00 Intake Total 240 ml 660 ml Output Total 300 ml Balance -60 ml 660 ml Intake Oral 660 ml IV Total 240 ml 0 ml Output Urine Total 300 ml # Voids 3 # Bowel Movements 2 Imaging Last 72 hours Impressions Chest X-Ray 03/20/16 1726 Signed Impressions: Service Date/Time: March 17:40 - CONCLUSION: No evidence of pulmonary disease. Edwin Sandhu MD A/P Problem List: (1) Wide-complex tachycardia Status: Acute Plan: - Patient has history of paroxysmal ventricular tachyarrhythmia. - amiodarone gtt - telemetry noted ectopy overnight including VT > 30 seconds - case d/w Cardiology, Dr. Randhawa (03/21/16) - Pt underwent LHC with Dr. Randhawa (03/21/16) - patent stent - mild CAD - Case d/w Dr. Blair - eps 03/26 s/p VT ablation. discussed with dr Blair d/c on asa and metoprolol. no plavix. f/u 2 weeks. (2) Diabetic nephropathy Status: Chronic Plan: - SSI (3) Hypertension Status: Chronic Plan: - stable - norvasc, lopressor, lisinopril (4) Chronic pain Status: Chronic Plan: - prn oxycodone/prn morphine Problem Qualifiers (1) Diabetic nephropathy: Qualified Code: E11.21 - Diabetic nephropathy associated with type 2 diabetes mellitus (2) Hypertension: Qualified Code: I10 - Essential hypertension Cesario Beckham MD Mar 27, 2016 07:50
[2016-03-27] MEDS ORDERED: METO25TA3 PO (07:51)
[2016-03-27] MEDS ORDERED: Aspirin Chew CHEW (07:51)
--- NOTE | 2016-03-27 07:52 | HHI.DCPOC ---
Discharge Care Plan Diagnosis: (1) Ventricular tachycardia (2) Hypertension (3) Chronic pain (4) Diabetic nephropathy Goals to Promote Your Health * To prevent worsening of your condition and complications * To maintain your health at the optimal level Directions to Meet Your Goals Take your medications as prescribed Follow your dietary instruction Follow activity as directed Keep your appointments as scheduled Take your immunizations and boosters as scheduled If your symptoms worsen call your PCP, if no PCP go to Urgent Care Center or Emergency Room Smoking is Dangerous to Your Health. Avoid second hand smoke Call the 24-hour hour crisis hotline for domestic abuse at Cesario Beckham MD Mar 27, 2016 07:52
[2016-03-27] MEDS: LISINOPRIL 20 MG TAB PO SCH (08:33)
[2016-03-27] MEDS: GABAPENTIN 400 MG CAP PO SCH (08:33)
[2016-03-27] MEDS: METOPROLOL TARTRATE 25 MG TAB PO SCH (08:33)
[2016-03-27] MEDS: VENLAFAXINE HCL XR 75 MG CAP PO SCH (08:33)
[2016-03-27] MEDS: ASPIRIN 81 MG CHEW TAB CHEW SCH (08:33)
[2016-03-27] MEDS ORDERED: BACITRACIN OINT 0.9 GM PKT ONE (16:14)
--- NOTE | 2016-04-08 14:03 | HHI.DS ---
Discharge Summary Admission Date Mar 24, 2016 at 12:02 Discharge Date: Apr 08, 2016 Admitting Diagnosis wide complex tachycardia (1) Wide-complex tachycardia Diagnosis: Principal (2) Diabetic nephropathy Diagnosis: Secondary (3) Hypertension Diagnosis: Secondary (4) Chronic pain Diagnosis: Secondary Consultants Dr. Malik Randhawa - Cardiology Dr. Kobe Blair - Cardiology/EP Brief History This is a 71-year-old male who has a history of prior HI and stent placement who presents to the emergency department via [facility] from local [facility] with wide- complex tachycardia. Patient was getting a tooth removed at the [facility] and he was administered some sort of education containing possibly epinephrine or Novocain when apparently on the monitor they noticed that he was in a wide-complex tachycardia. His blood pressure and heart rate were elevated. Manual recheck at the [facility] revealed heart rate in the 130s. Heart rate improved with Valsalva maneuver, but EMS was called. EMS said the patient's rhythm resolved for some periods of time but then he went back into wide-complex tachyarrhythmia so they started amiodarone and administered 150 mg. He denies any chest pain or shortness of breath. His son reports that he's been weaker recently and has had less energy than normal. She reports the only reason he is here is that the [facility] sent him by ambulance. He denies any complaints to me except for some slight oozing of blood from where he had his tooth removed and some slight pain around that area. Imaging Last Impressions Chest X-Ray 03/20/16 4526 Signed Impressions: Service Date/Time: March 17:40 - CONCLUSION: No evidence of pulmonary disease. Edwin Sandhu MD Hospital Course Patient has history of paroxysmal ventricular tachyarrhythmia who presented to the ED on 03/20/16 from a dental procedure with wide complex tachycardia. EMS started amiodarone and administered 150 mg en route. Pt was started on Amiodarone gtt. Cardiology was consulted. Pt continued to have ectopy on telemetry including VT > 30 seconds. Pt underwent LHC with Dr. Randhawa (03/21/16) with a noted patent stent mild CAD. The case was discussed between the Hospitalist and Dr. Blair and it was decided that the pt would undergo EP study which was performed on 03/26/16 with a VT ablation. Pt was to be discharged on asa and metoprolol, no Plavix. He is to f/u with Dr. Blair in 2 weeks. Pt is to followup with his PCP, Dr. Delgadillo, in 1 week. Pt Condition on Discharge: Stable Discharge Disposition: Disch w/ Home Health Serv Discharge Instructions DIET: Follow Instructions for: Heart Healthy Diet Activities you can perform: Regular-No Restrictions Other Activity Instructions: NO DRIVING Follow up Referrals: Cardiology - 2 Weeks with Marino Blair MD PCP Follow-up - [address] Neeta Barry New Medications: Metoprolol Tartrate (Metoprolol Tartrate) 25 Mg Tab 25 MG PO Q12HR cad #60 Ref 6 TAB ([Aspirin Chew]) 81 MG CHEW 81 MG CHEW DAILY cad #0 TAB.CHEW Continued Medications: Amlodipine (Amlodipine) 10 Mg Tab 10 MG PO DAILY Blood Pressure Management #30 Ref 0 TAB Atorvastatin (Atorvastatin) 40 Mg Tab 40 MG PO HS Cholesterol Management #30 Ref 0 TAB Gabapentin (Gabapentin) 800 Mg Tab 800 MG PO TID #90 Ref 0 TAB Ibuprofen (Ibuprofen) 600 Mg Tab 600 MG PO TID PRN PAIN Ref 0 TAB Insulin Aspart Inj (Novolog Inj) 1,000 Unit/10 Ml Vial 15 UNITS SQ AC BREAKFAST Blood Sugar Management #10 Ref 0 ML Insulin Aspart Inj (Novolog Inj) 1,000 Unit/10 Ml Vial 5 UNITS SQ AC LUNCH Blood Sugar Management #10 Ref 0 ML Insulin Aspart Inj (Novolog Inj) 1,000 Unit/10 Ml Vial 19 UNITS SQ AC DINNER Blood Sugar Management #10 Ref 0 ML Insulin Glargine Inj (Lantus Inj) 1,000 Unit/10 Ml Vial 52 UNITS SQ HS Blood Sugar Management Ref 0 VIAL Lisinopril (Lisinopril) 40 Mg Tab 40 MG PO DAILY Blood Pressure Management #30 Ref 0 TAB Lorazepam (Lorazepam) 1 Mg Tab 1 MG PO HS Ref 0 TAB [place]-3 Fatty Acids (Fish Oil 1000 mg) 1 Cap Cap 1000 MG PO BID Oxycodone (Oxycodone) 5 Mg Tab 5 MG PO Q8HR PRN PAIN Ref 0 TAB Venlafaxine ER 24 HR (Venlafaxine ER 24 HR) 225 Mg Tab 225 MG PO DAILY #30 Ref 0 TAB Iqra Sultana Apr 08, 2016 14:03
== END 2016-03-27 09:54 | disposition home health service (06) | DRG 274 ==
LOC: NEPC 17:04 → INTOOBSV 18:57 → NEDA 18:57 → NEDH 03-21 03:47 → HCIS 03-21 15:33 → OBSVTOIN 03-24 12:02
PROVIDERS: ADMIT Hospitalist; ATTEND Hospitalist
PROC: 4A023N7 Measurement of Cardiac Sampling and Pressure, Left Heart, Percutaneous Approach (ICD-10-PCS; 2016-03-21)
PROC: B2111ZZ Fluoroscopy of Multiple Coronary Arteries using Low Osmolar Contrast (ICD-10-PCS; 2016-03-21)
PROC: B2151ZZ Fluoroscopy of Left Heart using Low Osmolar Contrast (ICD-10-PCS; 2016-03-21)
PROC: 4A0234Z Measurement of Cardiac Electrical Activity, Percutaneous Approach (ICD-10-PCS; 2016-03-26)
PROC: 02K83ZZ Map Conduction Mechanism, Percutaneous Approach (ICD-10-PCS; 2016-03-26)
PROC: B24BZZZ Ultrasonography of Heart with Aorta (ICD-10-PCS; 2016-03-26)
PROC: 02583ZZ Destruction of Conduction Mechanism, Percutaneous Approach (ICD-10-PCS; principal; 2016-03-26 08:00)
DX: I47.2 Ventricular tachycardia (principal); E11.21 Type 2 diabetes mellitus with diabetic nephropathy; E11.42 Type 2 diabetes mellitus with diabetic polyneuropathy; I25.10 Atherosclerotic heart disease of native coronary artery without angina pectoris; I49.3 Ventricular premature depolarization; E11.22 Type 2 diabetes mellitus with diabetic chronic kidney disease; I12.9 Hypertensive chronic kidney disease with stage 1 through stage 4 chronic kidney disease, or unspecified chronic kidney disease; N18.2 Chronic kidney disease, stage 2 (mild); I25.2 Old myocardial infarction; B18.2 Chronic viral hepatitis C; E78.5 Hyperlipidemia, unspecified; G89.29 Other chronic pain; F41.9 Anxiety disorder, unspecified; J44.9 Chronic obstructive pulmonary disease, unspecified; Z79.4 Long term (current) use of insulin; Z95.5 Presence of coronary angioplasty implant and graft; Z87.891 Personal history of nicotine dependence
CPT/HCPCS: 71010; 80048; 80053; 82948; 83735; 84484; 85002; 85025; 85610; 85730; 86850; 86900; 86901; 93005; 93306; 93458; 93613; 93623; 93654; 93662; C1730; C1732; C1759; C1769; C1893; C2630; G0378; J0282; J1170; J1644; J1815; J2060; J2250; J2270; J2405; J2720; J3010; J7060; Q9967